=== PATIENT | male | born 1975 ===

== ENCOUNTER 2017-03-02 11:07 | Emergency (ER) | payer OTHER ==
--- NOTE | 2017-03-02 12:27 | UC ---
Abdominal Pain Male HPI - HPI Summary HPI Summary: Pulled tick off of L flank yesterday in shower, states he doesn't think it was a deer tick and that it wasn't alive when he pulled it off. Thinks it may have been on for more than 24 hours. Area has gotten a little more red, swollen, and itchy since then. Last night had 1 episode of cramping and diarrhea, today has nausea and a feeling of reflux in chest, is feeling feverish and having trouble concentrating. Not sure if he got "food poisoning" at [employer] last night or if there is something from the tick bite. - History of Current Complaint Hx Obtained From: Patient Onset/Duration: Gradual Onset, Lasting Hours Timing: Constant Severity Initially: Mild Severity Currently: Mild Radiates: No Character: Cramping Aggravating Factor(s):: Food Associated Signs And Symptoms: Positive: Diarrhea. Negative: Diaphoresis, Fever , Urinary Symptoms, Vomiting <Linn Chen - Last Filed: 03/02/17 12:21> <Laura Araujo - Last Filed: 03/02/17 13:09> - History of Current Complaint Chief Complaint: UCGeneralIllness Stated Complaint: REACTION TO TICK BITE/SHAKY Time Seen by Provider: 03/02/17 12:06 - Allergies/Home Medications Allergies/Adverse Reactions: Allergies Allergy/AdvReac Type Severity Reaction Status Date / Time No Known Allergies Allergy Verified 03/02/17 11:16 Home Medications: Home Medications Lamotrigine 200 mg PO BID 03/02/17 [History Confirmed 03/02/17] PMH/Surg Hx/FS Hx/Imm Hx Neurological History Of: Reports: Seizures - epilepsy - Surgical History Surgical History: None - Family History Known Family History: Negative: Blood Disorder - Social History Occupation: Employed Full-time - freelance contractor Alcohol Use: Rare Substance Use Type: None Smoking Status (MU): Never Smoked Tobacco - Immunization History Most Recent Influenza Vaccination: never Most Recent Tetanus Shot: 10 years ago <Linn Chen - Last Filed: 03/02/17 12:21> Review of Systems Constitutional: Fatigue Skin: Negative Eyes: Negative ENT: Negative Respiratory: Negative Cardiovascular: Negative Gastrointestinal: Abdominal Pain, Diarrhea Genitourinary: Negative Motor: Negative Neurovascular: Negative Musculoskeletal: Negative Neurological: Weakness Psychological: Negative All Other Systems Reviewed And Are Negative: Yes <Linn Chen - Last Filed: 03/02/17 12:21> Physical Exam Triage Information Reviewed: Yes Appearance: Well-Appearing, No Pain Distress, Well-Nourished Vital Signs: Initial Vital Signs Temp 98.5 F 03/02/17 11:17 Pulse 67 03/02/17 11:17 Resp 18 03/02/17 11:17 BP 146/89 03/02/17 11:17 Pulse Ox 98 03/02/17 11:17 Vital Signs Reviewed: Yes Eye Exam: Normal, Other - PERRL, EOM-I Eyes: Positive: Conjunctiva Clear ENT Exam: Normal ENT: Positive: Normal ENT inspection, Hearing grossly normal, Pharynx normal, TMs normal Dental Exam: Normal Neck exam: Normal Neck: Positive: Supple, Nontender, No Lymphadenopathy Respiratory Exam: Normal Respiratory: Positive: Chest non-tender, Lungs clear, Normal breath sounds, No respiratory distress, No accessory muscle use Cardiovascular Exam: Normal Cardiovascular: Positive: RRR, No Murmur Abdomen Description: Positive: No Organomegaly, Soft. Negative: CVA Tenderness (R), CVA Tenderness (L), Distended, Guarding Bowel Sounds: Positive: Present Musculoskeletal Exam: Normal Neurological Exam: Normal Neurological: Positive: Alert Psychological Exam: Normal Skin Exam: Other - tick bite site benign L flank, no streaking or drainage. Approx nickel-sized region of reactive erythema. <Linn Chen - Last Filed: 03/02/17 12:21> Vital Signs: Initial Vital Signs Temp 98.5 F 03/02/17 11:17 Pulse 67 03/02/17 11:17 Resp 18 03/02/17 11:17 BP 146/89 03/02/17 11:17 Pulse Ox 98 03/02/17 11:17 <Laura Araujo - Last Filed: 03/02/17 13:09> Abd Pain Male Course/Dx - Differential Dx/Clinical Impression Provider Diagnoses: viral syndrome. tick bite <Linn Chen - Last Filed: 03/02/17 12:21> Discharge <Linn Chen - Last Filed: 03/02/17 12:21> <Laura Araujo - Last Filed: 03/02/17 13:09> - Discharge Plan Condition: Stable Disposition: HOME Patient Education Materials: Acute Diarrhea (ED) Referrals: No Primary Care Phys,NOPCP [Primary Care Provider] - Additional Instructions: As we discussed, I believe your symptoms are from a temporary viral illness. You may start feeling better after today, or you may have symptoms for several days. Typical viral symptoms include, headaches, fever, aches, nausea, vomiting , diarrhea, sore throat, runny nose, and cough. If you have severe, worsening, or unexpected symptoms, please return here or see your primary care provider right away. Attestation Statement User Type: Provider - I was available for consult. This patient was seen by the JESSIKA. The patient was not presented to, seen by, or examined by me. <Laura Araujo - Last Filed: 03/02/17 13:09>
== END 2017-03-02 12:26 | disposition home or self-care (01) ==
LOC: UCEAST 11:07
DX: B34.9 Viral infection, unspecified (principal); G40.909 Epilepsy, unspecified, not intractable, without status epilepticus; S30.861A Insect bite (nonvenomous) of abdominal wall, initial encounter; W57.XXXA Bitten or stung by nonvenomous insect and other nonvenomous arthropods, initial encounter
CPT/HCPCS: 99201; G0463

== ENCOUNTER 2017-04-12 10:24 | Emergency (ER) | payer OTHER ==
[2017-04-12 10:40] VITALS: BP 142/75
[2017-04-12] MEDS ORDERED: Aspirin Low Dose CHEW TAB* 81 MG PO ONE (11:05)
--- NOTE | 2017-04-12 11:20 | UC ---
I, Oh,Gorge, scribed for Laura Araujo MD on 04/12/17 at 1100 . Cardiac HPI - HPI Summary HPI Summary: This 41 y/o male presents to [facility] for constant but waxing and waning substernal CP since yesterday 1500 PM. [place]. Pt states pain has been constant - but does wax/wane intensity. Pain is intermittently sharp with constant dullness. No radiation. mild nausea , no vomiting. No diaphoresis. No SOB. No lightheadedness. Pt took ASA before going to bed last night without relief. Pt did not wake up during night due to pain. When CP persisted today pr decided to visit [facility] today. No ASA taken this morning. Denies SOB, belching, new onset of back pain, or new onset of lightheadedness. Pt did not eat breakfast this morning. Pt without h/o dm, htn. Pt states had cholesterol checked -does not know the result . Pt adopted and doesn't know family hx. Pt does not smoke PMHx includes epilepsy and chronic back pain. No recent stress test done. FHx is unknown due to pt being adopted. Nonsmoker and monthly drinker. Med list is reviewed and confirmed. Plan of care involving transfer to [facility] is discussed and pt is agreeable. Pt refuses the ambulance transfer. Risk is discussed, and pt expresses understanding. - History of Current Complaint Chief Complaint: UCChestPain Stated Complaint: CHEST PAIN Time Seen by Provider: 04/12/17 10:34 Hx Obtained From: Patient Onset/Duration: Sudden Onset, Lasting Hours, Still Present Timing: Constant - waxing and waning Pain Intensity: 5 Chest Pain Location: Mid Sternal Character: Dull/Aching, Sharp/Stabbing Aggravating: Nothing Alleviating: Nothing Associated Signs & Symptoms: Positive: Chest Pain, Nausea/Vomiting - mild nausea. Negative: Dizziness, SOB - Allergy/Home Medications Allergies/Adverse Reactions: Allergies Allergy/AdvReac Type Severity Reaction Status Date / Time No Known Allergies Allergy Verified 03/02/17 11:16 PMH/Surg Hx/FS Hx/Imm Hx - Additional Past Medical History Additional PMH: Chronic back pain Previously Healthy: Yes Neurological History: Other - epilepsy Other Neurological History: epilepsy - Surgical History Surgical History: None - Family History Known Family History: Positive: Unknown - Pt is adopted Negative: Blood Disorder - Social History Occupation: Employed Full-time Lives: With Family Alcohol Use: Rare Substance Use Type: None Smoking Status (MU): Former Smoker - Immunization History Most Recent Influenza Vaccination: never Most Recent Tetanus Shot: 10 years ago Review of Systems Constitutional: Negative Skin: Negative Eyes: Negative ENT: Negative Respiratory: Negative Cardiovascular: Chest Pain Gastrointestinal: Other - Nausea Genitourinary: Negative Motor: Negative Neurovascular: Negative Musculoskeletal: Negative Neurological: Negative Psychological: Negative All Other Systems Reviewed And Are Negative: Yes Physical Exam Triage Information Reviewed: Yes Appearance: Well-Appearing, No Pain Distress, Well-Nourished Vital Signs: Initial Vital Signs Temp 97.9 F 04/12/17 10:35 Pulse 76 04/12/17 10:35 Resp 18 04/12/17 10:35 BP 142/75 04/12/17 10:35 Pulse Ox 99 04/12/17 10:35 Vital Signs Reviewed: Yes Eye Exam: Normal ENT Exam: Normal ENT: Positive: Hearing grossly normal, Pharynx normal, TMs normal Neck exam: Normal Neck: Positive: Supple, Nontender, No Lymphadenopathy Respiratory Exam: Normal Respiratory: Positive: Chest non-tender, Normal breath sounds, No respiratory distress Cardiovascular Exam: Normal Cardiovascular: Positive: RRR, No Murmur, Pulses Normal, Other: - No pain with palpation, ROM Abdominal Exam: Normal Abdomen Description: Positive: Nontender, No Organomegaly Bowel Sounds: Positive: Present Musculoskeletal Exam: Normal Neurological Exam: Normal Psychological Exam: Normal Skin Exam: Normal Diagnostics - EKG Cardiac Rate: NL - 66 bpm Cardiac Rhythm: Sinus: Normal ST Segment: Normal - Assessment/Plan Course Of Treatment: Pt with left sided chest pain since yesterday. Pt pain intermittent intensity - not resolved mild nausea. No known risk factors. EKG reviewed. Will give ASA. transfer to [facility] for further eval. Pt's to drive - AMA transport form completed. Pt in agreement with plan - Clinical Impression Provider Diagnoses: chest pain - Physician Notifications Discussed Patient Care With: Dr. Hughes ([facility]) at 1102 AM Time Discussed With Above Provider: 11:02 Instructed by Provider To: Transfer Discharge - Discharge Plan Condition: Stable Disposition: TRANS [facility] Patient Education Materials: Chest Pain (ED) Referrals: No Primary Care Phys,NOPCP [Primary Care Provider] - Additional Instructions: The doctor that evaluated you today feels you need additional evaluation for your chest pain. Go directly to the emergency department at [facility]. They are expecting you. Do not eat or drink enroute to the emergency department If your symptoms worsen or you have any concerns or changes, casing puller and call 911 The documentation as recorded by the Emery kothari Soohyun accurately reflects the service I personally performed and the decisions made by me, Laura Araujo MD.
[2017-04-13] MEDS ORDERED: Aspirin Low Dose CHEW TAB* 81 MG PO ONE (11:00)
== END 2017-04-12 11:15 | disposition short-term general hospital (02) ==
LOC: UCEAST 10:24
DX: R07.2 Precordial pain (principal); G40.909 Epilepsy, unspecified, not intractable, without status epilepticus; Z87.891 Personal history of nicotine dependence
CPT/HCPCS: 93005; 99202; A9270-GY; G0463

== ENCOUNTER 2017-04-12 11:31 | Observation (INO) | payer OTHER ==
[2017-04-12] MEDS ORDERED: Nitroglycerin TAB 0.4 MG* 0.4 MG TAB SL ONE (12:24)
--- NOTE | 2017-04-12 12:24 | RAD ---
HISTORY: Chest pain COMPARISONS: April 29, 2005 VIEWS:1: Single frontal portable view of the chest at 11:13 AM FINDINGS: LINES AND TUBES: None. CARDIOMEDIASTINAL SILHOUETTE: The cardiomediastinal silhouette is normal for portable technique. PLEURA: The costophrenic angles are sharp. No pleural abnormalities are noted. LUNG PARENCHYMA: The lungs are clear. ABDOMEN: The upper abdomen is clear. There is no subphrenic gas. BONES AND SOFT TISSUES: No bone or soft tissue abnormalities are noted. IMPRESSION: NO ACTIVE CARDIOPULMONARY DISEASE.
[2017-04-12 12:35] LABS: Hematocrit 47 % (42-52); Hemoglobin 15.7 g/dl (14.0-18.0); Mean Corpuscular HGB Conc 34 g/dl (31-36); Mean Corpuscular Hemoglobin 29 pg (27-31); Mean Corpuscular Volume 87 fL (80-94); Mean Platelet Volume 10 um3 (7.4-10.4); Red Blood Count 5.37 10^6/ul (4.0-5.4); Red Cell Distribution Width 13 % (10.5-15); White Blood Count 7.3 10^3/ul (3.5-10.8)
[2017-04-12 12:49] LABS: Albumin 4.4 g/dL (3.2-5.2); BUN/Creatinine Ratio 13.5 (8-20); EGFR African American 112.1 (>60); EGFR Non-African American 87.2 (>60); Globulin 2.8 g/dL (2-4); Potassium 4.2 mmol/L (3.5-5.0); Total Bilirubin 0.6 mg/dL (0.2-1.0); Total Protein 7.2 g/dL (6.4-8.9)
[2017-04-12] MEDS ORDERED: oxyCODONE/Acetamin 5/325 MG* TAB PO PRN (14:18)
[2017-04-12] MEDS ORDERED: Morphine INJ* 2 MG/ML 1 ML SYRINGE IV PRN (14:18)
[2017-04-12] MEDS ORDERED: Acetaminophen TAB* 325 MG PO PRN (14:18)
[2017-04-12 14:39] LABS: C Reactive Protein 4.76 mg/L (< 5.00)
[2017-04-12 17:24] LABS: Erythrocyte Sed Rate 9 mm/Hr (0-14)
--- NOTE | 2017-04-12 17:56 | HP ---
HISTORY AND PHYSICAL: DATE OF ADMISSION: 04/12/17 PRIMARY CARE PROVIDER: Dr. James. CHIEF COMPLAINT: Chest pain. HISTORY OF PRESENT ILLNESS: Spencer Rowley is a 41-year-old male with history of epilepsy who presents to the hospital complaining of chest pain. The patient somewhat describes the pain, not specifically. He states that the pain is sharp, lasts seconds at a time and due to how short bursts of the pain there are, it is impossible for him to distinguish if it is related to exercise or change of position or diet. Occasionally it is related to change of position or movement of his left arm. It is not associated with shortness of breath or diaphoresis. It occurs with and without exercise. During our evaluation, the patient had a couple of episodes of chest pain and he would say that "oh there it is and now it is gone" so, it appears that it really lasts a couple of seconds at a time. It is localized in the left lower sternal area. It appears to be point tenderness. The patient is going to be observed overnight on telemetry monitored bed with stress test in the morning as recommended by the ED physician. PAST MEDICAL HISTORY: Epilepsy with last seizure noted at the age of 20. MEDICATIONS: Lamictal 200 mg b.i.d. ALLERGIES: No known drug allergies. FAMILY HISTORY: Unknown. The patient is adopted. SOCIAL HISTORY: The patient denies tobacco, alcohol, or drug use. He is a computer installation engineer working for [employer] His surrogate is his mother, Martha Rowley. REVIEW OF SYSTEMS: Please see history of present illness. The patient has good exercise tolerance. Has not had any problems with chest pain or shortness of breath before. He has no history of recent hospitalizations and no recent travel. All the remaining 14 systems were reviewed with the patient and were otherwise negative. PHYSICAL EXAMINATION GENERAL: This is a very pleasant 41-year-old male. He is in no acute distress. Alert, awake, and oriented x3. VITAL SIGNS: Blood pressure of 141/87, heart rate of 67 and regular, respiratory rate 13, oxygen saturation 99% on room air, temperature of 98.8. HEENT: Head is atraumatic, normocephalic. Eyes: Pupils equal and reactive to light and accommodation. Oropharynx clear. Mucosa moist. NECK: Supple. No JVD. No bruits bilaterally. RESPIRATORY: Clear to auscultation bilaterally. CARDIOVASCULAR: Regular rate and rhythm. No murmur. ABDOMEN: Soft and nontender. Bowel sounds present in all 4 quadrants. EXTREMITIES: There is no edema. Pulses +2 bilaterally. No clubbing or cyanosis. NEUROLOGIC: Speech clear. Cranial nerves II through XII grossly intact. Motor strength is 5/5 bilaterally. SKIN: On evaluation of the skin, no ecchymotic areas or rashes noted. CHEST: On evaluation of the chest, the patient has a point tenderness on palpation of the left lower sternocostal region. The area is approximately 3 cm in diameter that has palpable tenderness. LABORATORY DATA/DIAGNOSTIC STUDIES: Sodium 138, potassium 4.2, chloride 101, carbon dioxide 30, BUN 13, creatinine 0.96. Liver function tests are unremarkable. Troponin of 0. White blood cell count of 7.3, hemoglobin of 15.7, hematocrit of 47, and platelets of 184. ESR and CRP are pending at the time of dictation. The patient's portable chest x-ray. Impression: "No active cardiopulmonary disease." The patient's EKG showed normal sinus rhythm with heart rate of 66 beats per minute with J-point elevation in leads V2 through V3. There also is nonspecific ST change in lead 3. ASSESSMENT AND PLAN: A 41-year-old male who is adopted and with unknown family history who presents complaining of some nonspecific chest pain. The patient is going to be placed on overnight observation with stress test in the morning. His troponins are going to be followed. If his chest scan is negative, he most likely suffers from costochondritis and will require nonsteroidal anti- inflammatory medications use, but first we need to rule out coronary artery disease. He is going to also be placed on aspirin. In regards to his history of epilepsy, the patient is going to be continued on Lamictal. For DVT prophylaxis, the patient is low risk and he is going to be encouraged with ambulation. Code status. The patient's code status is full. His surrogate is his mother. TIME SPENT: Approximately 62 minutes were spent on admission of this patient, more than half that time was spent [id number] with the patient during the interview and physical exam and counseling. CC: Dr. James from [place]* [id number]/[facility] #: [id number] [facility]
[2017-04-12] MEDS: lamoTRIgine TAB(*) 100 MG PO SCH (21:16)
[2017-04-13] MEDS ORDERED: Aspirin TAB* 325 MG PO SCH (09:00)
[2017-04-13 09:09] VITALS: BP 120/60
--- NOTE | 2017-04-13 09:46 | RAD ---
HISTORY: Chest pain COMPARISONS: None TECHNIQUE: A 1 day stress/rest myocardial perfusion study was performed, with exercise stress. The exercise portion was performed using the Karthik protocol, for a total METs of 12.8. The stress portion was monitored by Dr. Dickson. Gated SPECT imaging was performed, with CT-based attenuation correction DOSE: Stress: Technetium 99m tetrofosmin, 25.29 millicuries, injected at 8:55 AM on April 13, 2017 Rest: Technetium 99m tetrofosmin, 10.99 millicuries, injected at 6:25 AM on April 13, 2017 Pharmacologic agent: None FINDINGS: CARDIAC MONITORING: No EKG changes with stress EF: 64 % TID: 0.88 MOTION: Normal motion, with normal wall thickening. PERFUSION: There is a small mild reversible defect of the apex. OTHER: None IMPRESSION: SMALL MILD REVERSIBLE DEFECT OF THE APEX WHICH MAY REPRESENT A SMALL AREA OF ISCHEMIA. ASSESSMENT: LOW RISK. Based on imaging criteria from ACC/AHA 2002. Guideline Update for the Management of Patient's with Chronic Stable Angina, table 23. Noninvasive Risk Stratification.
--- NOTE | 2017-04-13 10:21 | ED ---
chun Red Timothy, scribed for Rishi Hughes MD on 04/12/17 at 1159 . HPI Chest Pain - HPI Summary HPI Summary: Spencer Rowley is a 41 yo male presenting to [facility] with 5/10 sharp CP since , sent here by [facility]. He states the pain occasionally fluctuates. He states he woke up this morning with some tingling in his left hand, but believes this to be no different from his baseline. His girlfriend is present in room. He noticed his CP while hiking yesterday without a backpack, and the pain has been constant since then. He denies any recent illnesses or hours in a car or other travel. He denies any aggravating or alleviating factors. He denies any nausea, diaphoresis, SOB, or light headedness other than baseline when standing up, or Hx of cardiac problems. He last saw a PCP 3-4 months ago. His MHx includes epilepsy and shingles. - History of Current Complaint Chief Complaint: EDChestPainROMI Time Seen by Provider: 04/12/17 12:13 Hx Obtained From: Patient Onset/Duration: Started Days Ago, Still Present Timing: Constant Initial Severity: Moderate Current Severity: Moderate Pain Intensity: 5 Pain Scale Used: 0-10 Numeric Chest Pain Location: Diffuse Character: Sharp/Stabbing Associated Signs and Symptoms: Positive: Chest Pain, Tingling - left hand when waking up this morning, Lightheadedness - baseline when standing up - Allergy/Home Medications Allergies/Adverse Reactions: Allergies Allergy/AdvReac Type Severity Reaction Status Date / Time No Known Allergies Allergy Verified 04/12/17 15:17 PMH/Surg Hx/FS Hx/Imm Hx Endocrine/Hematology History: Denies: Hx Diabetes, Hx Thyroid Disease Cardiovascular History: Denies: Hx Hypertension Respiratory History: Denies: Hx Asthma, Hx Chronic Obstructive Pulmonary Disease (COPD) GI History: Denies: Hx Ulcer Neurological History: Reports: Hx Seizures - epilepsy Infectious Disease History: Reports: Hx Shingles Denies: Hx Clostridium Difficile, Hx Hepatitis, Hx Human Immunodeficiency Virus (HIV), Hx of Known/Suspected MRSA, Hx Tuberculosis, Hx Known/Suspected VRE , Hx Known/Suspected VRSA, History Other Infectious Disease, Traveled Outside the [place] in Last 30 Days - Family History Known Family History: Positive: Unknown - Pt is adopted Negative: Blood Disorder - Social History Occupation: Employed Full-time - photography Alcohol Use: Rare Substance Use Type: Reports: None Smoking Status (MU): Former Smoker Review of Systems Constitutional: Negative Negative: Fever, Chills, Skin Diaphoresis Eyes: Negative Negative: Erythema ENT: Negative Negative: Sore Throat Positive: Chest Pain Respiratory: Negative Negative: Shortness Of Breath, Cough Gastrointestinal: Negative Negative: Abdominal Pain, Vomiting, Nausea Genitourinary: Negative Negative: dysuria, hematuria Musculoskeletal: Negative Negative: Myalgia, Edema - legs Skin: Negative Negative: Rash Neurological: Other - no dizziness Positive: Paresthesia - left hand Psychological: Normal All Other Systems Reviewed And Are Negative: Yes Physical Exam - Summary Physical Exam Summary: Constitutional: Well-developed, Well-nourished, Alert. (-) Distressed Skin: Warm, Dry HENT: Normocephalic; Atraumatic Eyes: Conjunctiva normal Neck: Musculoskeletal ROM normal neck. (-) JVD, (-) Stridor, (-) Tracheal deviation Cardio: Rhythm regular, rate normal, Heart sounds normal; Intact distal pulses; The pedal pulses are 2+ and symmetric. Radial pulses are 2+ and symmetric. (-) Murmur Pulmonary/Chest wall: Effort normal. (-) Respiratory distress, (-) Wheezes, (-) Rales Abd: Soft, (-) Tenderness, (-) Distension, (-) Guarding, (-) Rebound Musculoskeletal: (-) Edema Lymph: (-) Cervical adenopathy Neuro: Alert, Oriented x3 Psych: Mood and affect Normal Triage Information Reviewed: Yes Vital Signs On Initial Exam: Initial Vitals Temp Pulse Resp BP Pulse Ox 97.4 F 91 16 145/79 99 04/12/17 11:41 04/12/17 11:41 04/12/17 11:41 04/12/17 11:41 04/12/17 11:41 Vital Signs Reviewed: Yes Diagnostics - Vital Signs Vital Signs Temp Pulse Resp BP Pulse Ox 04/12/17 11:41 97.4 F 91 16 145/79 99 - Laboratory Result Diagrams: 04/12/17 12:15 04/12/17 12:15 Lab Statement: Any lab studies that have been ordered have been reviewed, and results considered in the medical decision making process. - Radiology CXR Xray Interpretation: No Acute Changes - IMPRESSION: NO ACTIVE CARDIOPULMONARY DISEASE. Radiology Interpretation Completed By: Radiologist - EKG 1152 Cardiac Rate: NL - 66 BPM EKG Interpretation: NSR @ 66 BPM, <1mm ST elevation inferior leads. No STEMI. Re-Evaluation - Re-Evaluation First Eval Re-Evaluation Time: 13:07 Change: Unchanged Comment: Pt has not received his medications yet. Second Eval Re-Evaluation Time: 14:06 Change: Unchanged Comment: CP has fluctuated, not necessarily due to NTG administration Third Eval Re-Evaluation Time: 15:05 Change: Unchanged Comment: Pt had his questions answered to his satisfaction regarding his admission to [facility]. Chest Pain Course/Dx - Course Assessment/Plan: Spencer Rowley is a 41 yo male presenting [facility] with sharp 5 /10 CP since yesterday without N/V or diaphoresis. His medication list has been reviewed this visit. Pt was counseled in room he would likely be admitted due to nature of his Sx. In the ED course he received NTG. His EKG suggests <1mm ST elevation in inferior leads. His CXR suggests no active cardiopulmonary disease. After clinical examination and review of his lab and imaging studies, as well as discussion with Dr. Fields, he will be admitted to [facility] for further observation and evaluation of his unspecified CP. - Diagnoses Provider Diagnoses: Chest pain, unspecified - Provider Notifications Discussed Care Of Patient With: Cele Fields - Discussed Pt condiiton, accepts Pt for admission Time Discussed With Above Provider: 14:17 Discharge - Discharge Plan Condition: Stable Disposition: ADMITTED TO [facility] Referrals: No Primary Care Phys,NOPCP [Primary Care Provider] - The documentation as recorded by the chun kothari Timothy accurately reflects the service I personally performed and the decisions made by me, Rishi Hughes MD.
[2017-04-13] MEDS: lamoTRIgine TAB(*) 100 MG PO SCH (11:47)
--- NOTE | 2017-04-13 22:24 | DS ---
CC: Dr. James, [facility] * DISCHARGE SUMMARY: DATE OF ADMISSION: 04/12/17 DATE OF DISCHARGE: 04/13/17 PRIMARY CARE PROVIDER: From [facility] and used to be Dr. James. DISCHARGE DIAGNOSIS: Left-sided chest pain, most likely due to costochondritis. SECONDARY DIAGNOSIS: History of epilepsy. MEDICATIONS: At discharge, include: 1. Ibuprofen 600 mg p.o. every 6 hours p.r.n. pain. 2. Lamictal 200 mg b.i.d. LABORATORY DATA AND STUDIES PERFORMED DURING THE HOSPITAL STAY: Included, in addition to the history and physical, laboratory data dictated. Please also note that the patient's troponins had been 0 throughout his hospital stay. The patient's nuclear medicine cardiac stress test obtained on the day of discharge showed, impression: "Small mild reversible defect at the apex, which may represent a small area of ischemia." Please also note that the stress test was assessed as low risk and EF was noted to be 64%. 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 He did have point tenderness on evaluation. Although the working diagnosis was costochondritis, the patient was advised by the ER physician to stay overnight for a cardiac stress test, which was performed on the day of discharge. The patient did have non-specific J-point elevation in anterior leads on EKG. The patient underwent a stress test, which showed small area of reversible ischemia that most likely was diaphragmatic attenuation. I spoke with Dr. Dickson, the garbage stoker, who performed the stress test. At this point, there is basically no suggestion of this current chest pain being of ischemic nature and once again, the small apical area on the nuclear study is most likely diaphragmatic attenuation. The patient's chest pain actually is slowly resolving and he has less point tenderness on exam today. Otherwise, his exam is unchanged from history and physical dictated prior by myself. He is going to be discharged home with recommendation to follow up with his primary care provider in approximately 1 to 2 weeks and use ibuprofen on a p.r.n. basis. [id number]/[facility] #: [id number] [facility]EN'S HOSPITALBabs
== END 2017-04-13 14:15 | disposition home or self-care (01) ==
LOC: ED 11:31 → MEDTELE 14:18
PROVIDERS: ADMIT Internal Medicine; ATTEND Internal Medicine
DX: R07.9 Chest pain, unspecified (principal); Z86.69 Personal history of other diseases of the nervous system and sense organs; R42 Dizziness and giddiness; Z86.19 Personal history of other infectious and parasitic diseases; Z87.891 Personal history of nicotine dependence
CPT/HCPCS: 36415; 71010; 78452; 80053; 84484; 85025; 85652; 86140; 93005; 93017; 96374; 99284; A9270-GY; A9502; G0378

== ENCOUNTER 2018-02-18 21:31 | Emergency (ER) | payer BC, OTHER ==
[2018-02-18 21:50] VITALS: BP 124/88
--- NOTE | 2018-02-18 21:58 | UC ---
Bite Injury/Animal HPI - HPI Summary HPI Summary: States he was bitten on his left thigh by his landlord's ex-'s dog which is an akido type approx 45 lb dog at around 8pm tonight. States this dog is usually very aggressive and has almost been bitten by it several times except that this time it was not on a leash. States he needs a tetanus vaccine. [employer] will obtain record of vaccinations but the dog is being taken care of. CRISSY and police report were generated. - History of Current Complaint Chief Complaint: UCBiteInjury Stated Complaint: DOG BITE Time Seen by Provider: 02/18/18 21:50 Hx Obtained From: Patient Severity Currently: Moderate Severity Initially: Moderate Pain Intensity: 5 Onset/Duration: Sudden Onset, Lasting Hours Has Animal Been Immunized?: Unknown Character: Abrasion/Laceration Aggravating Factor(s): Exertion Alleviating Factor(s): Rest Associated Signs And Symptoms: Positive: Negative Hx of Bite: Unprovoked - history of aggressiveness on dog, has been attempting to bite other animals and patient in the past Animal Available for Observation: Yes Animal Control Notified: Yes - Risk Factors Infection/Sepsis Risk Factors: Negative - Allergies/Home Medications Allergies/Adverse Reactions: Allergies Allergy/AdvReac Type Severity Reaction Status Date / Time No Known Allergies Allergy Verified 02/18/18 21:50 Home Medications: Home Medications lamoTRIgine TAB(*) [Lamictal TAB(*)] 150 mg PO BID 02/18/18 [History Confirmed 02/18/18] PMH/Surg Hx/FS Hx/Imm Hx Previously Healthy: Yes Neurological History: Seizures - Surgical History Surgical History: None - Family History Known Family History: Positive: Unknown - Pt is adopted Negative: Blood Disorder - Social History Alcohol Use: Rare Substance Use Type: None Smoking Status (MU): Former Smoker Type: Cigarettes Amount Used/How Often: less than pack a day Have You Smoked in the Last Year: No - Immunization History Most Recent Influenza Vaccination: never Most Recent Tetanus Shot: 10 years ago Review of Systems Constitutional: Negative All Other Systems Reviewed And Are Negative: Yes Physical Exam Triage Information Reviewed: Yes Appearance: Well-Appearing, No Pain Distress, Obese Vital Signs: Initial Vital Signs Temp 99.3 F 02/18/18 21:43 Pulse 94 02/18/18 21:43 Resp 18 02/18/18 21:43 BP 124/88 02/18/18 21:43 Pulse Ox 98 02/18/18 21:43 Vital Signs Reviewed: Yes Eyes: Positive: Conjunctiva Clear Neck: Positive: Supple, Nontender Respiratory: Positive: Chest non-tender, Lungs clear, Normal breath sounds, No respiratory distress Cardiovascular: Positive: RRR, No Murmur, Pulses Normal, Brisk Capillary Refill Skin Exam: Other - superficial abrassion with 6 conway converging in center in "v " shape on dorsal aspect of left thigh, no d/c. No surrounding erythema Bite Injury Course/Dx - Course Course Of Treatment: augmentin prescribed, take as indicated, wound care instructions given, Tdap vaccine administered. Observation of dog - Differential Dx/Diagnosis Provider Diagnoses: Dog Bite Discharge - Sign-Out/Discharge Documenting (check all that apply): Discharge - Discharge Plan Condition: Stable Disposition: HOME Patient Education Materials: Animal Bite (ED), Acute Wound Care (ED) Referrals: No Primary Care Phys,NOPCP [Primary Care Provider] - [facility] [Outside] - Billing Disposition and Condition Condition: STABLE Disposition: HOME
[2018-02-18] MEDS ORDERED: Tetan/Diph/Pertus SYR(Tdap)* 0.5 ML SYR(BOOSTRIX) use SYR IM ONE (22:01)
== END 2018-02-18 22:33 | disposition home or self-care (01) ==
LOC: UCEAST 21:31
DX: S70.312A Abrasion, left thigh, initial encounter (principal); W54.0XXA Bitten by dog, initial encounter; Y93.9 Activity, unspecified; Y92.9 Unspecified place or not applicable; Z23 Encounter for immunization; R56.9 Unspecified convulsions; Z87.891 Personal history of nicotine dependence
CPT/HCPCS: 90471; 90715; 99212; G0463

== ENCOUNTER 2020-01-30 18:53 | Emergency (ER) | payer BC ==
[2020-01-30] MEDS ORDERED: Lidocaine 1% MPF ** 5 ML VIAL INJ ONE (19:11)
--- NOTE | 2020-01-30 19:12 | UC ---
Laceration HPI - HPI Summary HPI Summary: 44yo man, lacerated web space between first and second digits about 18:30 this evening. Lacerated as he caught a glass which broke. Last tetanus was given here 02/18/2018. - History Of Current Complaint Chief Complaint: UCLaceration Stated Complaint: FINGER LAC Time Seen by Provider: 01/30/20 19:01 Hx Obtained From: Patient Laceration Location: Hand - left Mechanism Of Injury: Sharp Trauma Onset/Duration: Sudden Onset Severity: Mild Pain Intensity: 6 Aggravating Factors: Movement Related History: Dominant Hand Right - Allergies/Home Medications Allergies/Adverse Reactions: Allergies Allergy/AdvReac Type Severity Reaction Status Date / Time No Known Allergies Allergy Verified 01/30/20 18:57 Home Medications: Home Medications lamoTRIgine TAB(*) [Lamictal TAB(*)] 150 mg PO BID 02/18/18 [History Confirmed 02/18/18] Antidepressant 01/30/20 [History] PMH/Surg Hx/FS Hx/Imm Hx Previously Healthy: Yes Neurological History: Seizures - partial, last was approx 2005 Psychological History: Depression - Surgical History Surgical History: None - Family History Known Family History: Positive: Unknown - Pt is adopted, Diabetes - biological half brother has pre-diabetes. Negative: Blood Disorder - Social History Occupation: Employed Full-time Lives: With Family Alcohol Use: Rare Substance Use Type: None Smoking Status (MU): Former Smoker Type: Cigarettes Amount Used/How Often: less than pack a day Have You Smoked in the Last Year: No - Immunization History Most Recent Influenza Vaccination: never Most Recent Tetanus Shot: 10 years ago Review of Systems All Other Systems Reviewed And Are Negative: Yes Constitutional: Positive: Negative Skin: Positive: Other - laceration Eyes: Positive: Negative ENT: Positive: Negative Respiratory: Positive: Negative Cardiovascular: Positive: Negative Gastrointestinal: Positive: Negative Genitourinary: Positive: Negative Motor: Positive: Negative Neurovascular: Positive: Negative Musculoskeletal: Positive: Negative Neurological/Mental Status: Positive: Negative Psychological: Positive: Negative Is Patient Immunocompromised?: No Physical Exam Triage Information Reviewed: Yes Appearance: Well-Appearing, Pain Distress - mild ENT: Positive: Normal ENT inspection Respiratory Exam: Normal Cardiovascular Exam: Normal Musculoskeletal Exam: Normal, Other - normal mobility left thumb. Neurological Exam: Normal, Other - normal sensation left thumb Psychological Exam: Normal Skin Exam: Other - 12 mm laceration web space base of left thumb Laceration Repair - Laceration Repair 1 Description: Linear Laceration Size After Repair: Length (cm) - 12, Width (mm) - 1 Modified For Repair: No Type Injection: Local Anesthesia Used: 2.0% Lido - 1.5ml injected into site Cleansing Completed Via Routine Prep: Yes Irrigation With Pressure Irrigation Device: Yes Closure Material: Sutures - 2 interrupted sutures usin 5-0 ethilon Closure Method: Single Layer Suture Of: Skin Suture Type: Nylon Laceration Course/Dx - Course/Dx Course Of Treatment: Consent obtained and injected 1.5 cc of 2% lidocaine using sterile procedure. Wound repaired and dressed. Vinayus is current, last given 2017. - Differential Dx - Laceration/Wound Differental Diagnoses: Other - laceration - Diagnosis Provider Diagnosis: Laceration of left hand Discharge ED - Sign-Out/Discharge Documenting (check all that apply): Patient Departure All imaging exams completed and their final reports reviewed: No Studies - Discharge Plan Condition: Stable Disposition: HOME Patient Education Materials: Laceration (ED), Care For Your Stitches (ED) Referrals: Todd Rodriguez MD [Primary Care Provider] - Additional Instructions: Keep your wound as clean and dry as possible. Risk of infection is low, and you can apply a thin layer of topical antibiotic. Return here or to your primary care physician for removal of sutures. - Billing Disposition and Condition Condition: STABLE Disposition: Home
[2020-01-30 19:13] VITALS: BP 142/82
== END 2020-01-30 20:20 | disposition home or self-care (01) ==
LOC: UCEAST 18:53
DX: S61.412A Laceration without foreign body of left hand, initial encounter (principal); W25.XXXA Contact with sharp glass, initial encounter; Y92.9 Unspecified place or not applicable; F32.9 Major depressive disorder, single episode, unspecified; Z79.899 Other long term (current) drug therapy; Z87.891 Personal history of nicotine dependence
CPT/HCPCS: 12004; 99212; G0463

== ENCOUNTER 2021-01-19 08:38 | Observation (INO) ==
[2021-01-19] MEDS ORDERED: NS 0.9% 1000 ml BAG 1,000 ML IV ONE (08:56)
[2021-01-19 09:13] LABS: ABS Basophils 0.1 10^3/ul (0-0.2); ABS Eosinophils 0.1 10^3/ul (0-0.6); ABS Monocytes 0.6 10^3/ul (0-0.8); Eosinophil % 1.3 %; Hematocrit 48 % (42-52); Hemoglobin 16.4 g/dL (14.0-18.0); Lymphocyte % 26.1 %; Mean Corpuscular HGB Conc 34 g/dL (31-36); Mean Corpuscular Hemoglobin 29 pg (27-31); Mean Corpuscular Volume 86 fL (80-94); Mean Platelet Volume 9.5 fL (7.4-10.4); Platelet Count 226 10^3/uL (150-450); Red Blood Count 5.58 10^6 /uL (4.18-5.48); Red Cell Distribution Width 13 % (10-15); White Blood Count 7.7 10^3/uL (3.5-10.8)
[2021-01-19] MEDS ORDERED: Iodixanol (CONTRAST) 320 MG/ML 100 ML SDV IV ONE (09:20)
[2021-01-19 09:25] LABS: Activated Partial Thrombo Time 31.1 seconds (26.0-38.0); INR 1.01 (0.82-1.09)
[2021-01-19 09:46] LABS: Albumin 4.6 g/dL (3.2-5.2); Albumin/Globulin Ratio 1.4 (1-3); BUN/Creatinine Ratio 12.7 (8-20); EGFR African American 96.5 (>60); EGFR Non-African American 79.7 (>60); Globulin 3.2 g/dL (2-4); HDL Cholesterol 52.2 mg/dL; Potassium 3.6 mmol/L (3.5-5.0); Total Bilirubin 0.6 mg/dL (0.2-1.0); Total Protein 7.8 g/dL (6.4-8.9)
[2021-01-19 10:36] LABS: Urine Appearance Clear; Urine Bilirubin Negative (Negative); Urine Blood Negative (Negative); Urine Color Colorless; Urine Glucose Negative (Negative); Urine Ketones Negative (Negative); Urine Nitrite Negative (Negative); Urine Protein Negative (Negative); Urine Specific Gravity 1.012 (1.010-1.030); Urine Urobilinogen Negative (Negative)
[2021-01-19] MEDS: Enoxaparin 40 MG/0.4 ML SYR SUBCUT SCH (14:25)
[2021-01-20] MEDS ORDERED: Aspirin EC 81 mg TAB.EC (enteric coated) PO SCH (09:00)
[2021-01-20 09:52] LABS: TSH Ultra Thyroid Stim Horm 1.48 mcIU/mL (0.34-5.60)
[2021-01-20] MEDS ORDERED: Cyanocobalamin INJ 1,000 MCG/ML VIAL 1 ML VIAL IM ONE (10:30)
[2021-01-20] MEDS: Enoxaparin 40 MG/0.4 ML SYR SUBCUT SCH (13:51)
[2021-01-20 16:09] VITALS: BP 147/93
== END 2021-01-20 19:00 | disposition home or self-care (01) ==
LOC: MEDTELE 08:38 → ED 08:38 → MEDTELE 13:25
PROVIDERS: ADMIT Internal Medicine; ATTEND Internal Medicine